=== PATIENT | female | born 1980 | race Two or more races ===

== ENCOUNTER 2017-07-15 07:16 | Outpatient (CLI) | payer OTHER | END 2017-07-15 07:28 | disposition home or self-care (01) | LOC: RX STUDY 07:16 | DX: N97.0 Female infertility associated with anovulation (principal) ==

== ENCOUNTER 2019-11-21 09:14 | Outpatient (CLI) | payer OTHER | END 2019-11-21 09:26 | disposition home or self-care (01) | LOC: RX STUDY 09:14 | PROVIDERS: ATTEND Specialist | DX: R10.2 Pelvic and perineal pain (principal) ==

== ENCOUNTER → 2020-10-14 | Outpatient (CLI) | payer OTHER | END | disposition home or self-care (01) | LOC: PRENATAL 08:46 | PROVIDERS: ATTEND Obstetrics & Gynecology Maternal & Fetal Medicine | DX: O99.891 Other specified diseases and conditions complicating pregnancy (principal); O36.80X1 Pregnancy with inconclusive fetal viability, fetus 1; O09.511 Supervision of elderly primigravida, first trimester; Z36.89 Encounter for other specified antenatal screening; Z3A.12 12 weeks gestation of pregnancy ==

== ENCOUNTER → 2020-12-02 | Outpatient (CLI) | payer OTHER | END | disposition home or self-care (01) | LOC: PRENATAL 08:00 | PROVIDERS: ATTEND Obstetrics & Gynecology Maternal & Fetal Medicine | DX: O35.0XX1 Maternal care for (suspected) central nervous system malformation in fetus, fetus 1 (principal); O35.3XX1 Maternal care for (suspected) damage to fetus from viral disease in mother, fetus 1; O98.512 Other viral diseases complicating pregnancy, second trimester; O99.891 Other specified diseases and conditions complicating pregnancy; O09.522 Supervision of elderly multigravida, second trimester; Z36.89 Encounter for other specified antenatal screening; Z3A.19 19 weeks gestation of pregnancy ==

== ENCOUNTER 2021-02-21 11:36 | Inpatient (IN) | payer OTHER ==
[~2021-02-21] VITALS: Ht 147.3 cm; Wt 55.8 kg
[2021-02-21] MEDS ORDERED: FOLIC ACID20 MG PO (12:28)
[2021-02-21] MEDS ORDERED: PRENATAL CAPLE1 EAC1 PO (12:28)
== END 2021-02-22 12:28 | disposition home or self-care (01) | DRG 833 ==
LOC: OBS/DEL 11:36 → LDR 14:11
PROVIDERS: ADMIT Student in an Organized Health Care Education/Training Program; ATTEND Student in an Organized Health Care Education/Training Program
PROC: 4A1HXFZ Monitoring of Products of Conception, Cardiac Rhythm, External Approach (ICD-10-PCS; principal; 2021-02-21)
PROC: BY4FZZZ Ultrasonography of Third Trimester, Single Fetus (ICD-10-PCS; 2021-02-21)
DX: O36.8130 Decreased fetal movements, third trimester, not applicable or unspecified (principal); O36.8330 Maternal care for abnormalities of the fetal heart rate or rhythm, third trimester, not applicable or unspecified; Z3A.30 30 weeks gestation of pregnancy

== ENCOUNTER 2021-03-07 08:21 | Outpatient (CLI) | payer OTHER ==
[~2021-03-07 08:21] MED LIST: FOLIC ACID20 MG PO; PRENATAL CAPLE1 EAC1 PO
== END 2021-03-07 09:17 | disposition home or self-care (01) ==
LOC: PRENATAL 08:21
PROVIDERS: ATTEND Obstetrics & Gynecology Maternal & Fetal Medicine
DX: O26.843 Uterine size-date discrepancy, third trimester (principal); O09.523 Supervision of elderly multigravida, third trimester; O99.891 Other specified diseases and conditions complicating pregnancy; O35.0XX1 Maternal care for (suspected) central nervous system malformation in fetus, fetus 1; Z36.89 Encounter for other specified antenatal screening; Z3A.34 34 weeks gestation of pregnancy

== ENCOUNTER 2021-04-21 17:17 | Inpatient (IN) | payer OTHER ==
[~2021-04-21] VITALS: Ht 147.3 cm; Wt 47.2 kg
--- NOTE | 2021-04-21 18:25 | NUR ---
SE RECIBE PACIENTE FEMENINA ALERTA Y ORIENTADA EL CUAL REFIERE QUE EL STEPHAN 22 DE NOVIEMBRE LE REALIZASON C SEC Y HOY PRESNTA DOLOR EN EL AREA DE LA HERIDA Y DOLOR ABDOMINAL. SE UBICA PCIENTE EN OBSERVACION.
--- NOTE | 2021-04-21 19:51 | NUR ---
SE REALIZAN ORDENES MEDICAS EN AYALA TOTALIDAD. SE ORIENTA A PACIENTE SOBRE LAS MISMAS. SE MANTIENE PACIENTE EN OBSERVACION POR CAMBIOS SIGNIFICATIVOS DENTRO DE AY[place]A CONDICION
== END 2021-04-22 16:43 | disposition designated cancer center or children's hospital (05) | DRG 372 ==
LOC: ER 17:17 → OB/GYN 23:10
PROVIDERS: ADMIT Obstetrics & Gynecology; ATTEND Obstetrics & Gynecology
PROC: BW21Y0Z Computerized Tomography (CT Scan) of Abdomen and Pelvis using Other Contrast, Unenhanced and Enhanced (ICD-10-PCS; principal; 2021-04-21)
DX: K68.19 Other retroperitoneal abscess (principal); D68.0 Von Willebrand disease; Z20.822 Contact with and (suspected) exposure to COVID-19

== ENCOUNTER 2022-07-07 13:08 | Emergency (ER) | payer OTHER ==
[~2022-07-07] VITALS: Ht 152.4 cm; Wt 60.3 kg
== END 2022-07-07 21:24 | disposition home or self-care (01) ==
LOC: ER 13:08
DX: R42 Dizziness and giddiness (principal); R51.9 Headache, unspecified